=== PATIENT | male | born 1980 | race Caucasian/White ===

== ENCOUNTER → 2020-10-17 | Outpatient (CLI) | payer BC ==
--- NOTE | 2020-10-17 18:27 | CONS ---
CONSULTATION DATE OF SERVICE: 10/17/2020 This 40-year-old gentleman has been evaluated in [facility] for possible obstructive sleep apnea-hypopnea syndrome. HISTORY OF PRESENT ILLNESS/SLEEP-WAKE EVALUATION: Patient's usual sleep schedule on working days is from 9 p.m. until 6 a.m. and on weekends from 9 p.m. until 6 or 7 a.m. No problems with falling asleep, although patient has a TV in the bedroom. He sleeps on the side position. He snores, according to his . He wakes up from sleep 6 times with one episode of nocturia and dry mouth. In the morning the patient wakes up tired. He does not take any naps. Trinity Sleepiness Scale is 5. No history of hypnagogic hallucinations, sleep paralysis or cataplexy. PAST MEDICAL HISTORY: Positive for hypertension, hyperlipidemia, diabetes mellitus. PAST SURGICAL HISTORY: None. SOCIAL HISTORY: Negative for smoking or using alcohol. MEDICATIONS: 1. Amlodipine 5 mg once a day. 2. Lisinopril 20 mg once a day. 3. Fenofibrate 140 mg once a day. 4. Levocetirizine 5 mg once a day. 5. Metformin 500 mg twice a day. 6. Atorvastatin 60 mg once a day. 7. 10 mg once a day. FAMILY HISTORY: Acid reflux. REVIEW OF SYSTEMS: No fevers. No double vision. No recent chest pain. No shortness of breath. No abdominal pain. No bleeding episodes. No blood in the urine. No seizure episodes. Multiple awakenings from sleep. PHYSICAL EXAMINATION: GENERAL: A pleasant gentleman without distress. VITAL SIGNS: BP 132/77, HR 96, RR 15, height , weight 326.6, temperature 98.5. Body mass index 36.7. HEENT: PERRLA, EOMI. Evaluation of oropharynx showed tongue protrudes midline. Low position of soft palate. Mallampati III. NECK: Supple. No JVD. Thyroid is not palpable. Neck is wide; 21 inches in circumference. LUNGS: Clear to percussion and to auscultation. Good air exchange. No wheezing or rhonchi. HEART: S1, S2 regular. No murmurs, gallops or rubs. ABDOMEN: Soft and nontender. Bowel sounds are present. No organomegaly appreciated. EXTREMITIES: No clubbing or cyanosis. VERTICA ARCHITECT: Awake, alert, and oriented X3. Cranial nerves 2 to 7 intact. There is no fasciculation or atrophy. noted. No focal deficits observed. IMPRESSION: 1. Snoring, multiple awakenings from sleep, low position of soft palate, wide neck; obstructive sleep apnea-hypopnea syndrome. 2. Hypertension. 3. Hyperlipidemia. 4. Diabetes mellitus. 5. Obesity. 6. truck driver supervisor. PLAN: 1. Home sleep apnea test for evaluation of patient's breathing during sleep. 2. Following plan after reviewing results of sleep study. 3. Preferable position during sleep on the side. 4. No driving if patient feels any sleepiness. 5. I will see patient for follow up visit to explain results of testing and following plan. Thank you very much for referring this patient for consultation. Sincerely, Avery Meehan MD, PhD, FAASM Diplomat of [employer] [place] Personnel Placement Specialist of [facility] [place] MMODL / CATYN: [id number] /
== END | disposition home or self-care (01) ==
CPT/HCPCS: 99211

== ENCOUNTER 2022-07-05 12:34 | Emergency (ER) | payer BC ==
[2022-07-05 13:01] VITALS: BP 137/80; PULSE 94; RESP 16; TEMP 97
--- NOTE | 2022-07-05 13:07 | ED ---
Abdominal Pain HPI - General Source: patient, RN notes reviewed Mode of arrival: ambulatory Limitations: no limitations <Nick Bueno - Last Filed: 07/05/22 13:06> <Manuel Hernandez - Last Filed: 07/05/22 15:08> - General Chief Complaint: Abdominal Pain Stated Complaint: abd pain Time Seen by Provider: 07/05/22 13:06 - History of Present Illness Initial Comments: 42-year-old male presents emergency Department with chief complaint of right flank pain. Patient states is sudden onset of pain and swelling. Patient complains of nausea vomiting. Patient states it wraps around and down. Patient has no history kidney stone. Patient denies any prior abdominal surgeries no fevers or chills. Patient states he attempted to take Motrin but had recurrent emesis. (Nick Bueno) This is a 42-year-old male who presents emergency Department with right back pain that turned into right flank pain that eventually turned into right groin and some testicular pain. Patient states the pain was severe he started to vomit. Patient denies any fever chills per patient denies any dysuria hematuria urinary frequency. Patient denies any diarrhea. Patient denies any chest pain or difficulty breathing. Patient denies any history of kidney stone. (Manuel Hernandez) - Related Data Home Medications Medication Instructions Recorded Confirmed metFORMIN HCL [Glucophage] 500 mg PO BID 05/29/20 05/29/20 Previous Rx's Medication Instructions Recorded Ketorolac [Toradol] 10 mg PO Q6HR #15 tab 07/05/22 Tamsulosin [Flomax] 0.4 mg PO DAILY #10 cap 07/05/22 Allergies Allergy/AdvReac Type Severity Reaction Status Date / Time No Known Allergies Allergy Verified 05/29/20 10:01 Review of Systems ROS Other: All systems not noted in ROS Statement are negative. <Nick Bueno - Last Filed: 07/05/22 13:06> ROS Other: All systems not noted in ROS Statement are negative. <Manuel Hernandez - Last Filed: 07/05/22 15:08> ROS Statement: Those systems with pertinent positive or pertinent negative responses have been documented in the HPI. Past Medical History Past Medical History: Diabetes Mellitus, Hyperlipidemia History of Any Multi-Drug Resistant Organisms: None Reported Past Surgical History: No Surgical Hx Reported Past Anesthesia/Blood Transfusion Reactions: No Reported Reaction Past Psychological History: No Psychological Hx Reported Smoking Status: Never smoker Past Alcohol Use History: None Reported Past Drug Use History: None Reported <Nick Bueno - Last Filed: 07/05/22 13:06> General Exam Limitations: no limitations <Nick Bueno - Last Filed: 07/05/22 13:06> <Manuel Hernandez - Last Filed: 07/05/22 15:08> - General Exam Comments Initial Comments: GENERAL: Patient is well-developed and well-nourished. Patient is nontoxic and well- hydrated and is in no acute distress. ENT: Neck is soft and supple. No significant lymphadenopathy is noted. Oropharynx is clear. Moist mucous membranes. Neck has full range of motion without eliciting any pain. EYES: The sclera were anicteric and conjunctiva were pink and moist. Extraocular movements were intact and pupils were equal round and reactive to light. Eyelids were unremarkable. SKIN: Skin is clear with no lesions or rashes and otherwise unremarkable. NEUROLOGIC: Patient is alert and oriented x3. Cranial nerves II through XII are grossly intact. Normal speech, volume and content. Symmetrical smile. MUSCULOSKELETAL: Normal extremities with adequate strength and full range of motion. PSYCHIATRIC: Normal psychiatric evaluation. (Manuel Hernandez) Course Vital Signs 07/05/22 12:57 Temperature 97 F L Pulse Rate 94 Respiratory 16 Rate Blood Pressure 137/80 O2 Sat by Pulse 98 Oximetry Medical Decision Making - Lab Data Result diagrams: 07/05/22 14:08 07/05/22 14:08 <Manuel Hernandez - Last Filed: 07/05/22 15:08> - Medical Decision Making Was pt. sent in by a medical professional or institution (, PA, HOME HOSPICE RN, urgent care, hospital, or detention...) When possible be specific @ -No Did you speak to anyone other than the patient for history (EMS, parent, family, police, friend...)? What history was obtained from this source @ -No Did you review nursing and triage notes (agree or disagree)? Why? @ -I reviewed and agree with nursing and triage notes Were old charts reviewed (outside hosp., previous admission, EMS record, old EKG, old radiological studies, urgent care reports/EKG's, detention records)? Report findings @ -No old charts were reviewed Differential Diagnosis (chest pain, altered mental status, abdominal pain women, abdominal pain men, vaginal bleeding, weakness, fever, dyspnea, syncope, headache, dizziness, GI bleed, back pain, seizure, CVA, palpatations, mental health)? @ -Differential Abdominal Pain Men: Appendicitis, cholecystitis, diverticulosis, ischemic bowel, pancreatitis, hepatitis, UTI, gastroenteritis, AAA, incarcerated hernia, bowel obstruction, constipation, inflammatory bowel, hepatitis, peptic ulcer disease, splenic infarction, perforated viscus, testicular torsion, this is not meant to be an all-inclusive list EKG interpreted by me (3pts min.). @ -As above X-rays interpreted by me (1pt min.). @ -None done CT interpreted by me (1pt min.). @ -CT of the abdomen pelvis was interpreted by me shows a small kidney stone on the right U/S interpreted by me (1pt. min.). @ -None done What testing was considered but not performed or refused? (CT, X-rays, U/S, labs)? Why? @ -None What meds were considered but not given or refused? Why? @ -I did consider giving the patient pain medicine however he was pain-free at that time it did not need any Did you discuss the management of the patient with other professionals (professionals i.e. , PA, HOME HOSPICE RN, lab, RT, psych nurse, clinical social worker, intern architect, teacher, deputy probation officer, counseling case manager)? Give summary @ -No Was smoking cessation discussed for >3mins.? @ -No Was critical care preformed (if so, how long)? @ -No Were there social determinants of health that impacted care today? How? (Homelessness, low income, unemployed, alcoholism, drug addiction, transportation, low edu. Level, literacy, decrease access to med. care, snf, rehab)? @ -No Was there de-escalation of care discussed even if they declined (Discuss DNR or withdrawal of care, Hospice)? DNR status @ -No What co-morbidities impacted this encounter? (DM, HTN, Smoking, COPD, CAD, Cancer, CVA, ARF, Chemo, Hep., AIDS, mental health diagnosis, sleep apnea, morbid obesity)? @ -None Was patient admitted / discharged? Hospital course, mention meds given and route, prescriptions, significant lab abnormalities, going to OR and other pertinent info. @ -Patient will be discharged home with a diagnosis of kidney stone. Patient did not need any pain medicine because he was pain-free when I saw him in the waiting room Undiagnosed new problem with uncertain prognosis? @ -No Drug Therapy requiring intensive monitoring for toxicity (Heparin, Nitro, Insulin, Cardizem)? @ -No Were any procedures done? @ -No Diagnosis/symptom? @ -Kidney stone Acute, or Chronic, or Acute on Chronic? @ -Acute Uncomplicated (without systemic symptoms) or Complicated (systemic symptoms)? @ -Uncomplicated Side effects of treatment? @ -No Exacerbation, Progression, or Severe Exacerbation? @ -No Poses a threat to life or bodily function? How? (Chest pain, USA, MS, pneumonia, PE, COPD, DKA, ARF, appy, cholecystitis, CVA, Diverticulitis, Homicidal, Suicidal, threat to staff... and all critical care pts) @ -No (Manuel Hernandez) - Lab Data Lab Results 07/05/22 07/05/22 07/05/22 Range/Units 13:15 14:08 14:08 WBC 13.3 H (3.8-10.6) k/uL RBC 5.20 (4.30-5.90) m/uL Hgb 14.5 (13.0-17.5) gm/dL Hct 42.0 (39.0-53.0) % MCV 80.6 (80.0-100.0) fL MCH 27.9 (25.0-35.0) pg MCHC 34.6 (31.0-37.0) g/dL RDW 13.9 (11.5-15.5) % Plt Count 260 (150-450) k/uL MPV 8.9 Neutrophils % 90 % Lymphocytes % 5 % Monocytes % 4 % Eosinophils % 0 % Basophils % 0 % Neutrophils # 11.9 H (1.3-7.7) k/uL Lymphocytes # 0.7 L (1.0-4.8) k/uL Monocytes # 0.5 (0-1.0) k/uL Eosinophils # 0.0 (0-0.7) k/uL Basophils # 0.0 (0-0.2) k/uL Sodium 139 (137-145) mmol/L Potassium 4.6 (3.5-5.1) mmol/L Chloride 108 H (98-107) mmol/L Carbon Dioxide 22 (22-30) mmol/L Anion Gap 9 mmol/L BUN 24 H (9-20) mg/dL Creatinine 1.52 H (0.66-1.25) mg/dL Est GFR (CKD-EPI)AfAm 65 (>60 ml/min/1.73 sqM) Est GFR (CKD-EPI)NonAf 56 (>60 ml/min/1.73 sqM) Glucose 189 H (74-99) mg/dL Calcium 9.6 (8.4-10.2) mg/dL Total Bilirubin 0.7 (0.2-1.3) mg/dL AST 37 (17-59) U/L ALT 50 H (4-49) U/L Alkaline Phosphatase 63 (38-126) U/L Total Protein 7.3 (6.3-8.2) g/dL Albumin 4.3 (3.5-5.0) g/dL Lipase 239 (23-300) U/L Urine Color Yellow Urine Appearance Clear (Clear) Urine pH 5.0 (5.0-8.0) Ur Specific [place] 1.029 (1.001-1.035) Urine Protein 1+ H (Negative) Urine Glucose (UA) 1+ H (Negative) Urine Ketones 1+ H (Negative) Urine Blood Small H (Negative) Urine Nitrite Negative (Negative) Urine Bilirubin Negative (Negative) Urine Urobilinogen <2.0 (<2.0) mg/dL Ur Leukocyte Esterase Negative (Negative) Urine RBC 10 H (0-5) /hpf Urine WBC 1 (0-5) /hpf Ur Squamous Epith Cells <1 (0-4) /hpf Hyaline Casts 1 (0-2) /lpf Urine Mucus Few H (None) /hpf Disposition <Nick Bueno - Last Filed: 07/05/22 13:06> Is patient prescribed a controlled substance at d/c from ED?: No Time of Disposition: 15:07 <Manuel Hernandez - Last Filed: 07/05/22 15:08> Clinical Impression: Kidney stone Disposition: HOME SELF-CARE Condition: Good Instructions (If sedation given, give patient instructions): Kidney Stones (ED) Prescriptions: Tamsulosin [Flomax] 0.4 mg PO DAILY #10 cap Ketorolac [Toradol] 10 mg PO Q6HR #15 tab Referrals: Benito Staton MD [Primary Care Provider] - 1-2 days
[2022-07-05 13:48] LABS: Appearance,Urine Clear (Clear); Bilirubin,Urine Negative (Negative); Blood,Urine Small (Negative); Color,Urine Yellow; Glucose,Urine (UA) 1+ (Negative); Hyaline Casts,Urine 1 /lpf (0-2); Ketones,Urine 1+ (Negative); Leukocyte Esterase,Urine Negative (Negative); Mucus,Urine Few /hpf; Nitrite,Urine Negative (Negative); Protein,Urine 1+ (Negative); RBC,Urine 10 /hpf (0-5); Specific Gravity,Urine 1.029 (1.001-1.035); Squamous Epithelial Cell,Urine <1 /hpf (0-4); Urobilinogen,Urine <2.0 mg/dL (<2.0); WBC,Urine 1 /hpf (0-5)
--- NOTE | 2022-07-05 14:08 | CT ---
EXAMINATION TYPE: CT abdomen pelvis wo con CT DLP: 1666.8 mGycm, Automated exposure control for dose reduction was used. DATE OF EXAM: 07/05/2022 1:56 PM COMPARISON: None CLINICAL INDICATION:Male, 42 years old with history of right flank pain, no history of stones; Right flank pain TECHNIQUE: Axial CT of the abdomen and pelvis. Sagittal and coronal reformats were created on a [employer] workstation. Contrast used: None Oral contrast used: without Oral Contrast FINDINGS: LOWER CHEST: Unremarkable ABDOMEN LIVER: Diffusely hypoattenuating parenchyma. GALLBLADDER AND BILE DUCTS: Unremarkable. PANCREAS: Unremarkable. SPLEEN: Unremarkable. ADRENAL GLANDS: Unremarkable. KIDNEYS AND URETERS: 3 mm left obstructing calculus. PELVIS BLADDER: Unremarkable REPRODUCTIVE: Unremarkable. ABDOMEN & PELVIS STOMACH AND BOWEL: No evidence of bowel obstruction. Colonic diverticulosis. Appendix is not definiti vely visualized. PERITONEUM/RETROPERITONEUM: No evidence of pneumoperitoneum or free fluid. . VASCULATURE: No evidence of aortic aneurysm. MUSCULOSKELETAL: No acute osseous abnormalities LYMPH NODES: No gross evidence for lymphadenopathy. SOFT TISSUE/ABDOMINAL WALL: Unremarkable IMPRESSION: 1. Right ureterovesicular junction 2 mm calculus with mild right hydroureteronephrosis. 2. Nonobstructing left renal calculus. 3. Marked hepatic steatosis. 4. Colonic diverticulosis.
[2022-07-05 14:20] LABS: Basophils % (A) 0 %; Eosinophils % (A) 0 %; HGB 14.5 gm/dL (13.0-17.5); Lymphocytes # (A) 0.7 k/uL (1.0-4.8); Lymphocytes % (A) 5 %; MCH 27.9 pg (25.0-35.0); MCHC 34.6 g/dL (31.0-37.0); MCV 80.6 fL (80.0-100.0); Mean Platelet Volume 8.9; Monocytes # (A) 0.5 k/uL (0-1.0); Monocytes % (A) 4 %; Neutrophils # (A) 11.9 k/uL (1.3-7.7); Neutrophils % (A) 90 %; Platelet Count 260 k/uL (150-450); RDW 13.9 % (11.5-15.5); WBC 13.3 k/uL (3.8-10.6)
[2022-07-05 14:30] LABS: Albumin 4.3 g/dL (3.5-5.0); Calcium 9.6 mg/dL (8.4-10.2); Potassium 4.6 mmol/L (3.5-5.1); Total Bilirubin 0.7 mg/dL (0.2-1.3); Total Protein 7.3 g/dL (6.3-8.2)
== END 2022-07-05 15:16 | disposition home or self-care (01) ==
LOC: EC 12:34
DX: N20.0 Calculus of kidney (principal); K57.30 Diverticulosis of large intestine without perforation or abscess without bleeding; K76.0 Fatty (change of) liver, not elsewhere classified; E11.9 Type 2 diabetes mellitus without complications; Z79.84 Long term (current) use of oral hypoglycemic drugs
CPT/HCPCS: 36415; 74176; 80053; 81001; 83690; 85025; 99284

== ENCOUNTER → 2023-01-20 | Outpatient (CLI) | payer BC ==
[2023-01-21 05:47] LABS: Gliadin AB IgA, Deaminated Negative (Negative); Gliadin AB IgG, Deaminated Negative (Negative); Gliadin AB IgG, Unit <0.4 U/mL
== END | disposition home or self-care (01) ==
LOC: LABWHC1 15:32
PROVIDERS: ATTEND Nurse Practitioner Family
DX: K52.9 Noninfective gastroenteritis and colitis, unspecified (principal)
CPT/HCPCS: 36415; 83516; 85652; 86140